=== PATIENT | female | born 1955 | race Caucasian/White ===

== ENCOUNTER 2021-07-09 05:42 | Emergency (ER) | payer OTHER ==
--- OUTSIDE RECORDS SUMMARY | 2021-07-09 05:44 | XMS REPORT | Continuity of Care Document ---
:[address] [facility] [place] Address [address] [place] [address] [address] [place] [address] Care Team Providers Name Role Phone Toney CASTANO, A Primary Care Physician Mario AGARWAL, K.H. Attending Clinician Payers Payer Name Policy Type Policy Number Effective Date Expiration Date S ource Problems Condition Condition Condition Status Onset Resolution Last Treating Co mments Source Name Details Category Date Date Treatment Clinician Date No known No known Disease Unive rs active active ity of problems problems [facility] Allergies, Adverse Reactions, Alerts This patient has no known allergies or adverse reactions. Social History Social Habit Start Date Stop Date Quantity Comments Source Exposure to Not sure [facility] SARS-CoV-2 [facility] (event) Branch Alcohol intake 2021-06-12 2021-06-12 Ex-drinker [facility] 00:00:00 00:00:00 (finding) [facility] Tobacco use and 2020-06-22 2020-06-22 Never used Universit y of exposure 00:00:00 00:00:00 [facility] Sex [birth year] Universit y of 00:00:00 00:00:00 [facility] Smoking Status Start Date Stop Date Source Never smoker [facility] Medications Ordered Filled Start Stop Current Ordering Indication Dosage Frequency Signature Comments Components Source Medication Medication Date Date Medication? Clinician (SIG) Name Name losartan 25 Yes [id number] 25mg Take 1 Univers mg tablet 3-23 tablet by ity o f 00:00: mouth [place] 00 daily. Medical Branch metformin 2020-03 Yes [id number] Take two Univers ER 500 mg 2-03 tablets by ity of 24 hr 00:00: mouth [place] tablet 00 twice Medical daily Branch gabapentin 2020-03 Yes [id number] 300mg Take 1 Univers 300 mg 1-18 capsule by ity of capsule 00:00: mouth 2 [place] 00 (two) Medical times Branch daily. levothyroxi 2020-03 Yes [id number] 75ug Take 1 Univers ne 0-08 tablet by ity of (SYNTHROID) 00:00: mouth [place] 75 mcg 00 every Medical tablet morning. Branch insulin 2020-03 Yes [id number] USE 70 Univ ers aspart 0-08 UNITS ity of RAPID 100 00:00: DAILY VIA [place] as unit/mL 00 INSULIN Medical injection PUMP Branch DULoxetine Yes Univers 60 mg 3-10 ity of capsule 00:00: [place] 00 [facility] Immunizations Ordered Filled Immunization Date Status Comments Sour e Immunization Name Name SARS-COV-2 COVID-19 2021-04-25 Completed Unive rsity of MODERNA BOOSTER 00:00:00 [facility] VACCINE Branch Influenza Virus 2020-12-28 Completed Universit y of Vaccine [facility], 00:00:00 [facility] dical Preserv and ABX [place] 6 MO-64 YRS SARS-COV-2 COVID-19 2020-07-23 Completed Unive rsity of MODERNA VACCINE 00:00:00 [facility] SARS-COV-2 COVID-19 2020-06-22 Completed Unive rsity of MODERNA VACCINE 00:00:00 [facility] TDAP 2013-06-22 Completed University 00:00:00 [facility] Procedures This patient has no known procedures. Encounters Start End Encounter Admission Attending Care Care Encounter Source Date/Time Date/Time Type Type Clinicians Facility Department ID 2021-06-18 2021-06-18 Telephone LISS Martin [id number] Univers 00:00:00 00:00:00 Cas PETERSON [id number] ity edwin [place] [id number] [place] PROFESS[place] [id number] Tn dical NAL 059 Branch BUILDING Results This patient has no known results.
[2021-07-09] MEDS ORDERED: PROMETH/COD 6.25/10MG SYRUP 5ML ONE (06:48)
[2021-07-09] MEDS ORDERED: NA CHLORIDE 0.9% 500 ML ONE (06:48)
[2021-07-09 07:12] LABS: Absolute Lymphocytes (CBC) 0.9 K/uL (0.7-4.9); Hematocrit 31.8 % (36.0-45.0); Lymphocytes % 9.5 % (15.3-44.8); MPV 8.4 fL (7.6-11.3); RBC Red Blood Cell Count 3.68 M/uL (3.86-4.86)
[2021-07-09 07:32] LABS: Albumin 2.7 g/dL (3.4-5.0); Bilirubin Total 0.7 mg/dL (0.2-1.0); Potassium 3.6 mmol/L (3.5-5.1); Protein, Total 6.7 g/dL (6.4-8.2)
[2021-07-09 08:17] LABS: SARS-COV-2 RT PCR NEGATIVE (NEGATIVE)
[2021-07-09 08:48] LABS: Blood Morphology Comment NOT SEEN (NOT SEEN); Platelet Estimate ADEQ
--- NOTE | 2021-07-09 08:56 | RAD REPORT ---
EXAM DESCRIPTION: RAD - Chest Single View - 07/09/2021 6:29 am CLINICAL HISTORY: Congestion Chest pain. COMPARISON: No comparisons FINDINGS: Portable technique limits examination quality. Mild interstitial prominence bilaterally suggesting viral infection or reactive airway disease. The h eart is normal in size. No displaced fractures.
[2021-07-09] MEDS ORDERED: ONDANSETRON 4 MG/2 ML VIAL ONE (09:14)
[2021-07-09] MEDS ORDERED: MORPHINE 4 MG/ML SYR ONE (09:14)
--- NOTE | 2021-07-09 09:37 | EDPHYS ---
Physician Documentation [facility] Name: Ginna Oliveros Age: 66 yrs Sex: Female : 1955 Arrival Date: 07/09/2021 Time: 05:43 Bed 8 Private MD: ED Physician Braxton Azevedo HPI: 07/09 09:31 This 66 yrs old Female presents to ER via Wheelchair with complaints of Cough, Fever, ma2 Headache. 09:31 Onset: The symptoms/episode began/occurred gradually, 2 day(s) ago. Patient has been ma having flu. 09:34 Patient has been having flulike symptoms cough runny nose for 2 days, she went to [facility] ultrasound tested positive for flu and strep, she is here because she needs antibiotics and cough medicine as she has been having pain from cough, denies chest pain or fever or shortness of breath. Historical: - Allergies: 06:04 No Known Allergies; sm5 - PMHx: 06:04 Diabetes mellitus; Hypertensive disorder; Fibromyalgia; sm5 - Immunization history:: Client reports receiving the 2nd dose of the Covid vaccine. - Social history:: Smoking status: Patient denies any tobacco usage or history of. Patient/guardian denies using alcohol, street drugs, The patient lives with family. - Family history:: not pertinent. ROS: 09:34 Constitutional: Negative for fever, chills, and weight loss. ma2 09:34 All other systems are negative. Exam: 09:34 Constitutional: This is a well developed, well nourished patient who is awake, alert, ma2 and in no acute distress. ENT: Nares patent. No nasal discharge, no septal abnormalities noted. Tympanic membranes are normal and external auditory canals are clear. Oropharynx with no redness, swelling, or masses, exudates, or evidence of obstruction, uvula midline. Mucous membranes moist. Neck: Trachea midline, no thyromegaly or masses palpated, and no cervical lymphadenopathy. Supple, full range of motion without nuchal rigidity, or vertebral point tenderness. No Meningismus. Chest/axilla: Normal chest wall appearance and motion. Nontender with no deformity. No lesions are appreciated. Cardiovascular: Regular rate and rhythm with a normal S1 and S2. No gallops, murmurs, or rubs. Normal PMI, no JVD. No pulse deficits. Respiratory: Lungs have equal breath sounds bilaterally, clear to auscultation and percussion. No rales, rhonchi or wheezes noted. No increased work of breathing, no retractions or nasal flaring. Abdomen/GI: Soft, non-tender, with normal bowel sounds. No distension or tympany. No guarding or rebound. No evidence of tenderness throughout. Skin: Warm, dry with normal turgor. Normal color with no rashes, no lesions, and no evidence of cellulitis. MS/ Extremity: Pulses equal, no cyanosis. Neurovascular intact. Full, normal range of motion. Neuro: Awake and alert, GCS 15, oriented to person, place, time, and situation. Cranial nerves II-XII grossly intact. Motor strength 5/5 in all extremities. Sensory grossly intact. Cerebellar exam normal. Normal gait. Vital Signs: 06:02 BP 145 / 72; Pulse 81; Resp 19; Temp 98.1(O); Pulse Ox 100% on R/A; Weight 68.04 kg; 5 Height 5 ft. 6 in. (167.64 cm); Pain 4/10; 07:49 BP 152 / 76; Pulse 83; Resp 20; Pulse Ox 94% on R/A; ph 09:26 BP 136 / 71; Pulse 89; Resp 18; Pulse Ox 95% on R/A; ph 06:02 Body Mass Index 24.21 (68.04 kg, 167.64 cm) 5 MDM: 09:34 Differential Diagnosis: Bronchitis Influenza Upper Respiratory Infection Sinusitis ma2 Other I discussed results with the patient, she likely has viral pneumonia, tested positive for flu here, however she also tested positive for strep 2 days ago at another facility. Corrected sodium for hyperglycemia is 130, this is likely due to decreased p.o. intake as she has not been taking enough p.o. related. Patient would like to be discharged I discussed all these lab finding in her diet blood sugar and she is aware. She return to ER for any worsening of symptoms she asked for antibiotics and pain medication and a cough medicine. Data reviewed: vital signs, nurses notes. Counseling: I had a detailed discussion with the patient and/or guardian regarding: the historical points, exam findings, and any diagnostic results supporting the discharge/admit diagnosis, the presence of at least one elevated blood pressure reading (>120/80) during this emergency department visit, the need for outpatient follow up. Response to treatment: the patient's symptoms have resolved after treatment. 09:36 Patient medically screened. ma2 07/09 06:12 Order name: Blood Culture Adult (2) kdr 07/09 06:12 Order name: CBC with Diff; Complete Time: 09:31 kdr 07/09 06:12 Order name: CMP; Complete Time: 07:47 kdr 07/09 06:12 Order name: Lactate; Complete Time: 07:47 kdr 07/09 06:22 Order name: COVID-19/FLU A+B (Document "Date of Onset" if Symptomatic); Complete Time: vc1 09:31 07/09 06:53 Order name: Glucose, Ancillary Testing; Complete Time: 07:47 EDMS 07/09 06:12 Order name: Chest Single View XRAY; Complete Time: 09:31 kdr 07/09 06:12 Order name: Accucheck; Complete Time: 06:41 kdr 07/09 06:12 Order name: Cardiac monitoring; Complete Time: 08:57 kdr 07/09 08:49 Order name: Manual Differential; Complete Time: 09:31 EDMS 07/09 06:12 Order name: IV Saline Lock - Large Bore; Complete Time: 06:38 kdr 07/09 06:12 Order name: Labs collected and sent; Complete Time: 06:38 kdr 07/09 06:12 Order name: O2 Per Protocol; Complete Time: 06:38 kdr 07/09 06:12 Order name: O2 Sat Monitoring; Complete Time: 06:38 kdr Administered Medications: 06:49 Drug: Phenergan (promethazine) -Codeine Liquid (6.25mg - 10mg / 5mL) 5 ml Route: PO; sm5 06:49 Drug: NS 0.9% 500 ml Route: IV; Rate: bolus; Site: right antecubital; sm5 09:21 Drug: Zofran (Ondansetron) 4 mg Route: IVP; Site: right antecubital; ph 09:24 Drug: morphine 4 mg Route: IVP; Site: right antecubital; ph Disposition Summary: 07/09/21 09:36 Discharge Ordered Location: Home ma2 Condition: Stable ma2 Diagnosis - Influenza due to other identified influenza virus with pneumonia ma2 Followup: ma2 - With: Private Physician - When: Tomorrow - Reason: If symptoms return, Continuance of care Discharge Instructions: - Discharge Summary Sheet ma2 Forms: - Medication Reconciliation Form ma2 - Thank You Letter ma2 - Antibiotic Education ma2 - Prescription Opioid Use ma2 Prescriptions: - ketorolac 10 mg Oral tablet - take 1 tablet by ORAL route every 4 hours not to exceed 40 mg in 24hrs; 30 ma2 tablet; Refills: 0, Product Selection Permitted - Tessalon Perles 100 mg Oral Capsule - take 1 capsule by ORAL route every 8 hours As needed; 15 capsule; Refills: 0, ma2 Product Selection Permitted - Zithromax Z-Jaime 250 mg Oral Tablet - take 1 tablet by ORAL route as directed for 5 days Day 1 - take two (2) tablets ma2 one time. Day 2, 3, 4 , 5 take one (1) tablet once daily.; 6 tablet; Refills: 0, Product Selection Permitted - Medrol (Jaime) 4 mg Oral Tablets, Dose Pack - take 1 tablet by ORAL route as directed - follow package instructions; 1 ma2 packet; Refills: 0, Product Selection Permitted - Ativan 0.5 mg Oral Tablet - take 1 tablet by ORAL route every 8 hours As needed; 20 tablet; Refills: 0, ma2 Product Selection Permitted Signatures: Dispatcher [employer] Payam Gillis MD MD [facility] Savanna Davidson, RN RN Braxton Azevedo MD MD ia2 Kenna Blanco RN RN sm5
--- NOTE | 2021-07-09 09:37 | ER ---
Nurse's Notes [facility] Name: Ginna Oliveros Age: 66 yrs Sex: Female : 1955 Arrival Date: 07/09/2021 Time: 05:43 Bed 8 Private MD: Diagnosis: Influenza due to other identified influenza virus with pneumonia Presentation: 07/09 06:02 Chief complaint: Patient states: seen at [place] on Thursday, dx with flu and strep. given sm5 theraflu, cough meds and still having a cough, diarrhea. also complaining of lower back pain from coughing so much. Coronavirus screen: Vaccine status: Patient reports receiving the 2nd dose of the covid vaccine. Ebola Screen: No symptoms or risks identified at this time. Initial Sepsis Screen: Does the patient meet any 2 criteria? No. Patient's initial sepsis screen is negative. Does the patient have a suspected source of infection? Yes: Productive cough/pneumonia. Risk Assessment: Do you want to hurt yourself or someone else? Patient reports no desire to harm self or others. Onset of symptoms was July 03, 2021. 06:02 Method Of Arrival: Wheelchair [facility] 06:02 Acuity: KOBY 4 5 Triage Assessment: 06:04 Headache History: The patient has had previous headaches and this one is similar to [facility] previous episodes. General: Appears in no apparent distress. Behavior is cooperative. Pain: Complains of pain in left low back and right low back Pain currently is 4 out of 10 on a pain scale. Pain began 2-3 days ago. Also complains of no other associated symptoms. Neuro: No deficits noted. Level of Consciousness is awake, alert, obeys commands, Oriented to person, place, time, situation. Cardiovascular: No deficits noted. Capillary refill < 3 seconds Patient's skin is warm and dry. Respiratory: Airway is patent Trachea midline Respiratory effort is even, unlabored, Parent/caregiver reports the patient having cough that is. GI: Abdomen is flat, Reports diarrhea. Historical: - Allergies: 06:04 No Known Allergies; sm5 - PMHx: 06:04 Diabetes mellitus; Hypertensive disorder; Fibromyalgia; sm5 - Immunization history:: Client reports receiving the 2nd dose of the Covid vaccine. - Social history:: Smoking status: Patient denies any tobacco usage or history of. Patient/guardian denies using alcohol, street drugs, The patient lives with family. - Family history:: not pertinent. Screenin:06 Abuse screen: Denies threats or abuse. Denies injuries from another. Nutritional [facility] screening: No deficits noted. Tuberculosis screening: No symptoms or risk factors identified. Fall Risk None identified. Assessment: 06:15 Reassessment: see triage assessment. [facility] 07:48 Reassessment: Patient appears in no apparent distress at this time. Patient and/or ph family updated on plan of care and expected duration. Pain level reassessed. Patient is alert, oriented x 3, equal unlabored respirations, skin warm/dry/pink. Pt noted to have persistent cough, reports pain to back and chest r/t coughing, VSS w/ Spo2 100% RA, at bedside, awaiting CXR results. Vital Signs: 06:02 BP 145 / 72; Pulse 81; Resp 19; Temp 98.1(O); Pulse Ox 100% on R/A; Weight 68.04 kg; 5 Height 5 ft. 6 in. (167.64 cm); Pain 4/10; 07:49 BP 152 / 76; Pulse 83; Resp 20; Pulse Ox 94% on R/A; ph 09:26 BP 136 / 71; Pulse 89; Resp 18; Pulse Ox 95% on R/A; ph 06:02 Body Mass Index 24.21 (68.04 kg, 167.64 cm) [facility] ED Course: 05:43 Patient arrived in ED. kz 05:53 Payam Galindo MD is Attending Physician. kdr 06:02 Kenna Blanco, TANIA is Primary Nurse. 5 06:04 Triage completed. 5 06:06 Arm band placed on right wrist. 5 06:07 Patient has correct armband on for positive identification. Bed in low position. Call [facility] light in reach. Side rails up X2. Pulse ox on. NIBP on. 06:31 Chest Single View XRAY In Process Unspecified. EDMS 06:33 Inserted saline lock: 20 gauge in right antecubital area, using aseptic technique. [facility] Blood collected. 06:38 Blood Culture Adult (2) Sent. 5 06:38 CBC with Diff Sent. 5 06:38 CMP Sent. 5 06:38 Lactate Sent. 5 06:50 COVID-19/FLU A+B (Document "Date of Onset" if Symptomatic) Sent. [facility] 07:58 Attending Physician role handed off by Payam Galindo MD [facility] 07:58 Braxton Azevedo MD is Attending Physician. [facility] Administered Medications: 06:49 Drug: Phenergan (promethazine) -Codeine Liquid (6.25mg - 10mg / 5mL) 5 ml Route: PO; 5 06:49 Drug: NS 0.9% 500 ml Route: IV; Rate: bolus; Site: right antecubital; 5 09:21 Drug: Zofran (Ondansetron) 4 mg Route: IVP; Site: right antecubital; ph 09:24 Drug: morphine 4 mg Route: IVP; Site: right antecubital; ph Outcome: 09:36 Discharge ordered by . [facility] 11:34 Patient left the ED. ph Signatures: Dispatcher [employer] EDMS Payam Galindo MD MD [facility] Savanna Davidson RN RN Braxton Azevedo MD MD [facility] Kenna Blanco RN RN [facility] Beba Oliver
[2021-07-09 15:44] VITALS: TEMP 98.1
[2021-07-09 15:47] VITALS: BP 136/71; O2SAT 95
== END 2021-07-09 11:34 | disposition home or self-care (01) ==
LOC: ER 05:42
DX: J10.00 Influenza due to other identified influenza virus with unspecified type of pneumonia (principal); Z20.822 Contact with and (suspected) exposure to COVID-19; E11.9 Type 2 diabetes mellitus without complications; I10 Essential (primary) hypertension
CPT/HCPCS: 87040 ×2; 85025; 36415; 82947; 83605; 80053; 0240U; 71045; 96375; 96374; 99284; J7040; J2405